=== PATIENT | female | born 1975 | race Caucasian/White ===

== ENCOUNTER 2024-05-09 03:04 | Emergency (ER) | payer SELFPAY ==
[~2024-05-09] VITALS: Ht 154.9 cm; Wt 74.8 kg
[2024-05-09 03:05] VITALS: BP 130/90; PULSE 84; RESP 16; TEMP 97.1
--- NOTE | 2024-05-09 03:28 | NUR ---
DR STEWART CALLED PT FOR ASSESSMENT, NO [place]ER
--- NOTE | 2024-05-09 03:33 | NUR ---
PT CALLLED, NO ANSWER, CALLED REGISTRATION, PER REGISTRATION THEY WALKED OUT . NO COMMUNICATION WITH NURSING STAFF MADE
--- NOTE | 2024-05-09 03:36 | ERN ---
ED Note History of Present Illness Stated Complaint: LEFT LEG PAIN Chief Complaint: Lower Extremity Pain/Injury Time Seen by MD: 03:09 Dictation: After triage the patient decided to leave AMA Allergies: Coded Allergies: No Known Allergies (Unverified Allergy, Unknown, 05/09/24) Past Medical History Past Medical History: Other Additional Past Medical Hx: SCIATIC Surgical History: Other Surgical History Other: LIPOSUCTION Review of System Dictation Not collected the patient left AMA Initial Vital Sign VS Vital Signs Date Time Temp Pulse Resp B/P (MAP) Pulse Ox O2 Delivery O2 Flow Rate FiO2 05/09/24 03:05 97.2 84 16 130/90 99 Room Air Physical Exam Dictation Patient left AMA from triage ED Course ED Course Vital Signs Date Time Temp Pulse Resp B/P (MAP) Pulse Ox O2 Delivery O2 Flow Rate FiO2 05/09/24 03:05 97.2 84 16 130/90 99 Room Air Medical Decision Making MDM After triage patient decided to leave AMA DX & DISP Disposition: AMA Departure Impression: Primary Impression: Sciatic nerve pain Condition: Stable After triage patient decided to left AMA AMI LATHAM MD May 09, 2024 03:36
== END 2024-05-09 03:34 | disposition left against medical advice (07) ==
LOC: EDH 03:04
DX: M54.32 Sciatica, left side (principal)
CPT/HCPCS: 99281